=== PATIENT | female | born 1975 | race Caucasian/White ===

== ENCOUNTER 2017-09-14 18:36 | Inpatient (IN) | payer OTHER ==
[~2017-09-14] VITALS: Ht 177.8 cm; Wt 94.3 kg
--- NOTE | 2017-09-14 21:30 | NUR ---
INTAKE ASSESSMENT Pt presented as anxious,restless,emotionally disturbed,c/o "felling unwell"; reported that she has been drinking beer since she was 15 years old.She started drinking occasionally in small quantity and then over the years she began drinking more frequently in greater quantity and now she is drinking 8 bottles of beer,12 ozs each on a daily basis;last drink was at 1900 today.Pt also reports taking Xanax on a daily basis.She initially began taking Xanax 5 years ago when she was 36 years old,starting with smaller doses.She is currently taking Xanax 2.5mg on a daily basis,last taken 1 mg at 1999 today.She came in here today because she wants to stop drinking beer and taking Xanax.Pt is A/O X 4,speech is clear,ambulates with a steady gait and is in a stable condition to proceed to [facility]. B/P=112/66,T=97.6,P-106,R=18,O2 SAT=95% ON RA. Addendum: 09/15/17 at 0953 by VIKAS SANDERSON RN This morning I asked the patient how long she has been drinking/using at the current rate and she stated as follows: 1. ETOH--8 12oz bottles of beer daily for the past six months. As stated above, she began drinking at 15, it increased over the years, she was sober for two years from the ages of [age] (without treatment), and 6 months ago progressed to the current rate. Last drink was 2 bottles of beer on 09/14 at 1900 2. Xanax--2.5 mg daily for the past six months. This medication is not prescribed and she has never had a prescription for Xanax. She states that she first used Xanax approximately 2 years ago, starting at 1 mg/day, and it progressed to 2.5 mg/day six months ago. She has taken at least 1 mg of Xanax everyday for 2 years. As stated above, last use was 1 mg on 09/14 at 1999. She began purchasing Xanax to help with her anxiety and panic attacks.
[2017-09-14] MEDS ORDERED: ACETAMINOPHEN 325 MG TABLET PO PRN (22:15)
[2017-09-14] MEDS ORDERED: LOPERAMIDE HCL 2 MG CAPSULE PO PRN ×2 (22:15)
[2017-09-14] MEDS ORDERED: IBUPROFEN 600 MG TABLET PO PRN (22:15)
[2017-09-14] MEDS ORDERED: MIRALAX 17 GM POWD.PACK PO PRN (22:15)
[2017-09-14] MEDS ORDERED: LORAZEPAM 1 MG TABLET PO PRN ×2 (22:15)
[2017-09-14] MEDS ORDERED: ONDANSETRON ODT 4 MG TAB.RAPDIS SL PRN (22:15)
[2017-09-14] MEDS ORDERED: ONDANSETRON 4 MG/2 ML VIAL IM PRN (22:15)
[2017-09-14] MEDS ORDERED: THIAMINE HCL 200 MG/2 ML VIAL IM ONE (22:15)
[2017-09-14] MEDS ORDERED: LORAZEPAM 2 MG/1 ML VIAL IM PRN (22:15)
[2017-09-14] MEDS ORDERED: MAGNESIUM HYDROXIDE 30 ML LIQUID UDC PO PRN (22:15)
[2017-09-14 22:24] LABS: *URINE HCG, QUAL NEGATIVE (NEGATIVE)
[2017-09-14] MEDS ORDERED: LORAZEPAM 1 MG TABLET PO ONE (22:30)
--- NOTE | 2017-09-14 22:30 | NUR ---
ADMISSION NOTE HT=5 FEET, 10 INCHES. TV=992 POUNDS. B/P=112/66,T=97.8,P-106,R=18,O2 SAT=95% ON ROOM AIR. CIWA=7 NKA Admitting 41 y/o female to [facility] for medically supervised withdrawals from ETOH/BENZO.Pt presented as anxious,restless,emotionally disturbed,c/o "felling unwell"; reported that she has been drinking beer since she was 15 years old.She started drinking occasionally in small quantity and then over the years she began drinking more frequently in greater quantity and now she is drinking 8 bottles of beer,12 ozs each on a daily basis;last drink was at 1900 today.Pt also reports taking Xanax on a daily basis.She initially began taking Xanax 5 years ago when she was 36 years old,starting with smaller doses.She is currently taking Xanax 2.5mg on a daily basis,last taken 1 mg at 1999 today. 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 distress, Endometriosis,insomnia,decreased hearing in both ears and difficulty breathing when she first wakes up.Pt denies any hx of Asthma/SOB.No seizure hx noted.Pt is c/o headache 5/10 due to "HANG OVER" from drinking beer. Skin is intact,warm and dry to touch,breathing is even and non labored,no s/s of respiratory distress noted, abdomen is soft and palpable with bowel sounds present in all four quadrants,no c/o nausea,vomiting of diarrhea noted.Pt had a bowel movement today. Pt denies any SI/HI/AVH.Pt oriented to room and unit,care plan and safety checks initiated,education material provided. notified,orders obtained. Pt is A/O X 4,lives in [place] by herself,stated that her friend helped her with this admission.She has never been in Detox treatment before,this is her first time ever.She does not have PCP. Pt stated she was sober for 2 years between the ages of 25 to 27 from drinking alcohol and detoxed on her own.She stated that she has never stopped taking Xanax,since she started taking it when she was 36 years old;because she cannot survive without taking Xanax due to having high level of anxiety and has panic attacks when she does not take it. PSYCH HX :- Pt has history of suicide attempt x 2 by overdosing on alcohol and medications,in 2009.She was hospitalized in [facility] x 2 in 2009 and placed on 5150 foe danger to self. SUBS.ABUSE HX: 1) BEERS - Pt reports drinking 8 bottles of beer 12 ozs each on a daily basis. Last drink was 2 bottles at 1900 today. 2) XANAX - Pt reports taking 2.5 mg of Xanax daily. Last taken 1 mg at 2000 today. WITHDRAWAL SYMPTOMS:- Anxiety,restlessness,body twitching,tremors,hallucinations,nausea and insomnia. NO PRIOR DETOX HX. HOME MEDICATIONS XANAX-2.5 MG DAILY FOR ANXIETY. MOTRIN-400 MG NEEDED FOR PAIN. IMODIUM- NEEDED FOR DIARRHEA.
[2017-09-14] MEDS ORDERED: ALPR2TAB2 PO (22:32)
[2017-09-14 22:36] LABS: *AMPHETAMINE, URINE NEGATIVE (NEGATIVE); *BARBITURATE, URINE NEGATIVE (NEGATIVE); *CANNABINOID, URINE NEGATIVE (NEGATIVE); *COCCAINE, URINE NEGATIVE (NEGATIVE); *OPIATE, URINE NEGATIVE (NEGATIVE); *PHENCYCLIDINE SCREEN,URINE NEGATIVE (NEGATIVE)
[2017-09-14] MEDS: diphenhydrAMINE 50 MG CAPSULE PO PRN (23:19)
--- NOTE | 2017-09-14 23:20 | NUR ---
PRN MEDICATIONS PRN MOTRIN GIVEN ORDERED FOR C/O HEADACHE 06/26.PRN BENADRYL GIVEN FOR C/O INSOMNIA.WILL MONITOR FOR EFFECTIVENESS.
[2017-09-15] VITALS: BP 109/71
--- NOTE | 2017-09-15 | NUR ---
CIWA deferred due to Pt being asleep;no s/s of distress noted,all safety measures in place,will continue to monitor.
[2017-09-15 00:01] LABS: BASOPHILS % (AUTO) 0.4 % (0.0-2.0); EOSINOPHILS # (AUTO) 0.3 K/uL (0.0-0.7); EOSINOPHILS % (AUTO) 3.7 % (0.0-7.0); HEMATOCRIT 42.9 % (31.2-41.9); LYMPHOCYTES # (AUTO) 2.3 K/uL (20.0-40.0); LYMPHOCYTES % (AUTO) 27.2 % (20.5-51.5); MEAN CORPUSCULAR HEMOGLOBIN 33.2 uug (24.7-32.8); MEAN CORPUSCULAR HGB CONC 35 g/dL (32.3-35.6); MEAN CORPUSCULAR VOLUME 95.3 fL (75.5-95.3); MONOCYTES # (AUTO) 0.5 K/uL (2.0-10.0); MONOCYTES % (AUTO) 6.3 % (0.0-11.0); NEUTROPHILS # (AUTO) 5.3 K/uL (1.8-8.9); NEUTROPHILS % (AUTO) 62.4 % (38.5-71.5); PLATELET COUNT (AUTO) 276 K/uL (179-408); RED BLOOD CELL COUNT(AUTO) 4.51 MIL/uL (3.63-4.92); WHITE BLOOD COUNT (AUTO) 8.5 K/uL (3.8-11.8)
--- NOTE | 2017-09-15 00:20 | NUR ---
PRN REASSESSMENT. Pt is calm and resting in bed with eyes closed;breathing is even and non labored,no s/s of distress noted;all safety measures in place,call light is within reach,will continue to monitor.
[2017-09-15 00:39] LABS: BILIRUBIN,TOTAL 0.2 mg/dL (0.2-1.0); CREATININE 0.8 mg/dL (0.6-1.3); MAGNESIUM 1.7 mg/dL (1.8-2.4); POTASSIUM 3.9 mmol/L (3.5-5.1); TOTAL PROTEIN, SERUM 6.8 g/dL (6.4-8.2)
[2017-09-15] MEDS ORDERED: LOPE2CAP40 GT (00:41)
[2017-09-15] MEDS ORDERED: IBUP-1955 PO (00:41)
[2017-09-15 04:00] VITALS: BP 98/61
--- NOTE | 2017-09-15 04:00 | NUR ---
CIWA deferred due to Pt being asleep;no s/s of distress noted,all safety measures in place,will continue to monitor.
--- NOTE | 2017-09-15 06:37 | NUR ---
END OF SHIFT Pt is a 41 y/o female admitted to [facility] for medically supervised withdrawals from ETOH/BENZO.Pt presented as feeling anxious,restless,emotionally disturbed,c/o "felling unwell",began crying during interview,stated that she is having and anxiety attack; also c/o headache due to hangover and cannot sleep at night.Pt was given Ativan 2 mg PO as ordered,PRN Motrin for headache and Benadryl for insomnia.Medications were effective in controlling symptoms.Pt slept 7 hrs,fluid intake was 1000 mls,voided x 2.Last CIWA was 7. All safety measures in place. Bed is locked in lowest position with side rails x2 up for safety. Call light within reach, will endorse care to on coming shift nurse.
--- NOTE | 2017-09-15 07:30 | NUR ---
START OF SHIFT NOTE Received report from night nurse, 41 year old female admitted for ETOH/Xanax withdrawal. Patient currently not on any taper but PRN'S available for s/s of withdrawal. Per endorsement patient received PRN Motrin, Benadryl, Ativan effective per night nurse, Last CIWA -7, slept for 7 hours. Received patient alert awake poor eye contact, appears flushed and bilateral hand tremors, sweats, anxious, agitated, restless, easily distracted, unkempt room. Educated patient regarding the importance of attending groups activities. Patient verbalized understanding. All safety measures in place, Call light within reach. Will cont to monitor.
[2017-09-15 08:00] VITALS: BP 95/63
--- NOTE | 2017-09-15 08:00 | NUR ---
CIWA ASSESSMENT CIWA score noted-10, Patient presented with anxiety, agitation, restless, bilateral hand tremors,encourage patient to use non pharmacological intervention. Will cont to monitor.
[2017-09-15] MEDS: MULTIVITAMINS,THERAPEUTIC TABLET PO SCH (08:52)
[2017-09-15] MEDS: THIAMINE HCL 100 MG TABLET PO SCH (08:52)
[2017-09-15] MEDS: FOLIC ACID 1 MG TABLET PO SCH (08:52)
[2017-09-15] MEDS ORDERED: MAGNESIUM OXIDE 400 MG TABLET PO ONE (09:00)
[2017-09-15] MEDS ORDERED: TUBERCULIN,PURIF.PROT.DERIV. 5 TU/0.1 ML TEST ID ONE (09:00)
[2017-09-15 12:00] VITALS: BP 132/90
--- NOTE | 2017-09-15 12:00 | NUR ---
CIWA ASSESSMENT CIWA score-13, Patient continues to exhibits s/s of withdrawal anxiety, agitation, restless, bilateral hand tremors, anhedonia, Patient scheduled to start for Valium taper. Will cont to monitor.
[2017-09-15] MEDS ORDERED: 5 DAY TAPER OF LORAZEPAM -SERENITY PROTOCOL PO PRN (13:00)
--- NOTE | 2017-09-15 13:11 | NUR ---
Therapist prompted client to attend group therapy sessions twice daily.
[2017-09-15] MEDS ORDERED: LORAZEPAM 1 MG TABLET PO SCH (13:30)
[2017-09-15] MEDS ORDERED: 5 DAY TAPER VALIUM-SERENITY PROTOCOL PO PRN (14:45)
[2017-09-15] MEDS: DIAZEPAM 10 MG TABLET PO SCH ×3 (15:07→21:12)
[2017-09-15 16:00] VITALS: BP 119/88
--- NOTE | 2017-09-15 16:00 | NUR ---
CIWA ASSESSMENT CIWA score 12, patient resting in her room, reported anxiety, agitation, restless, pines and needles, sweats. Will cont to monitor.
[2017-09-15] MEDS: FLUOXETINE HCL 20 MG CAPSULE PO SCH (16:28)
--- NOTE | 2017-09-15 18:51 | NUR ---
END OF SHIFT NOTE Gave report to night nurse, 41 year old female admitted for ETOH/Xanax withdrawal and continues and started Valium taper this afternoon tolerated well. Patient continues to exhibit anxiety, agitation, restless, anhedonia, sweats, sad facial expression, worried, fine bilateral hand tremors noted, depressed. Patient received scheduled medications and patient was seen by psychiatrist with new order to give Prozac 20mg PO medication administered as ordered patient tolerated well. During shift patient received scheduled medications and PPD was given on LFA no s/s of bleeding no swelling noted. Encourage patient to attend groups activities to learn new coping skills. Most recent CIWA score-12. All safety measures in place, call light within reach. Patient endorse to night nurse in stable condition.
--- NOTE | 2017-09-15 19:30 | NUR ---
START OF SHIFT Pt is a 41 y/o female admitted to [facility] for medically supervised withdrawals from ETOH/BENZO.Pt received in room,c/o feeling anxious,restless and not feeling well. Pt also c/o intermittent nausea and constipation but does not want to take any medications at this time,stated I will go to smoke and will be okay.Pt has been started on a Valium taper and has been tolerating well.Wants to wait for scheduled medications.No A/R noted. No PRN meds given during the day. Last CIWA 12. All safety measures in place. Bed is locked in lowest position with side rails x2 up for safety. Call light is within reach, will continue to monitor for safety.
[2017-09-15 20:00] VITALS: BP 132/91
--- NOTE | 2017-09-15 20:00 | NUR ---
COWS=9. Pt is c/o feeling tremulous,anxious,restless,c/o having mild nausea but no vomiting reported;refused to take zofran when offered.Pt feels like she does not belong in here.Emotional support and positive coping skills encouraged.Pt stated that her job is very stressful and gives her a lot of anxiety.Pt plans to join a gym and go to an out patient clinic after discharge;will continue to monitor.
[2017-09-15] MEDS: TRAZODONE 50 MG TABLET PO SCH (21:12)
[2017-09-16] VITALS: BP 108/66
--- NOTE | 2017-09-16 | NUR ---
CIWA DEFERRED CIWA deferred due to Pt being asleep;no s/s of distress noted,all safety measures in place,V/S are stable;will continue to monitor.
[2017-09-16 04:00] VITALS: BP 99/68
--- NOTE | 2017-09-16 04:00 | NUR ---
CIWA DEFERRED CIWA deferred due to Pt being asleep;no s/s of distress noted,all safety measures in place,V/S are stable;will continue to monitor.
[2017-09-16 04:05] LABS: HEPATITIS B SURFACE AG Negative (Negative)
--- NOTE | 2017-09-16 07:30 | NUR ---
START OF SHIFT NOTE Received report from night nurse, 41 year old female admitted for ETOH/Xanax withdrawal. Patient continues on Valium taper tolerating well. Per endorsement patient did not receive any PRN , Last CIWA -9, slept for 7 hours. Received patient alert awake poor eye contact, appears flushed and bilateral hand tremors, sweats, anxious, agitated, restless. Educated patient regarding the importance of attending groups activities. Patient verbalized understanding. All safety measures in place, Call light within reach. Will cont to monitor.
[2017-09-16 08:00] VITALS: BP 107/71
--- NOTE | 2017-09-16 08:00 | NUR ---
CIWA ASSESSMENT CIWA score noted 12, Patient presented with anxiety, agitation, restless, anhedonia, sweats, light headed. patient due for schedule medications. Will cont to monitor.
[2017-09-16] MEDS: FOLIC ACID 1 MG TABLET PO SCH (08:12)
[2017-09-16] MEDS: THIAMINE HCL 100 MG TABLET PO SCH (08:12)
[2017-09-16] MEDS: FLUOXETINE HCL 20 MG CAPSULE PO SCH (08:12)
[2017-09-16] MEDS: MULTIVITAMINS,THERAPEUTIC TABLET PO SCH (08:12)
[2017-09-16] MEDS: DIAZEPAM 10 MG TABLET PO SCH ×3 (08:12→20:38)
[2017-09-16] MEDS ORDERED: LORAZEPAM 1 MG TABLET PO SCH (09:00)
[2017-09-16 12:00] VITALS: BP 130/94
--- NOTE | 2017-09-16 12:00 | NUR ---
CIWA ASSESSMENT CIWA score noted 14, Patient continues to exhibit s/s of with anxiety, agitation, restless, sweats, light headed stomach cramps. Will cont to monitor.
--- NOTE | 2017-09-16 13:40 | NUR ---
Therapist prompted client to attend group therapy sessions.
[2017-09-16] MEDS: DICYCLOMINE HCL 20 MG TABLET PO PRN (13:47)
--- NOTE | 2017-09-16 13:47 | NUR ---
PRN BENTYL Patient reported stomach cramps 5/10. PRN Bentyl 20mg PO administered as ordered. Will cont to monitor and reassess.
--- NOTE | 2017-09-16 14:47 | NUR ---
BENTYL REASSESSMENT Per patient Bentyl was effective in lowering her stomach cramps 2/10.
[2017-09-16 16:00] VITALS: BP 126/88
--- NOTE | 2017-09-16 16:00 | NUR ---
CIWA ASSESSMENT CIWA score noted 13, Patient continues to exhibit s/s of with anxiety, agitation, restless, sweats, light headed. Will cont to monitor.
--- NOTE | 2017-09-16 19:21 | NUR ---
END OF SHIFT NOTE Gave report to night nurse, patient continues with Valium taper tolerating well. Patient presented with anxiety, agitation, restless, anhedonia, stomach cramps, bilateral hand tremors. Patient noted with flat affect. Patient was given schedule medications along with PRN Bentyl for stomach cramps noted to be effective. Encourage pt to attend group activities to learn new coping skills. Encourage PO fluids as tolerated. All safety measures in place, Call light within reach. Patient endorsed to night nurse in stable condition.
--- NOTE | 2017-09-16 19:30 | NUR ---
START OF SHIFT Pt is a 41 y/o female admitted on 09/14/17 for ETOH and benzo withdrawal. Pt is on a 5 day Valium taper that started on 09/15/17, tolerating well. Last CIWA 13 and PRN Bentyl administered during day shift. Upon assessment pt presents with anxiety, restlessness, racing thoughts, elevated BP, elevated HR, tremors, sweats, flushed skin, agitation, difficulty concentrating, disheveled appearance, difficulty falling and staying asleep, and is fidgety. Medications due. Safety measures in place. Call light within reach. Will continue to monitor.
[2017-09-16 20:00] VITALS: BP_SYST 122; BP_SYST 150; BP_DIAS 86; BP_DIAS 88
--- NOTE | 2017-09-16 20:00 | NUR ---
CIWA 14 Pt presents with anxiety, restlessness, racing thoughts, elevated BP, elevated HR, tremors, sweats, flushed skin, agitation, difficulty concentrating, disheveled appearance, difficulty falling and staying asleep, and is fidgety. Pt states, "My anxiety is so high right now, I need to go smoke right now."
[2017-09-16] MEDS: TRAZODONE 50 MG TABLET PO SCH (20:38)
[2017-09-16] MEDS: CLONIDINE HCL 0.1 MG TABLET PO PRN (20:38)
--- NOTE | 2017-09-16 20:38 | NUR ---
PRN CLONIDINE ADMINISTRATION Pt presents with anxiety, agitation, sweats and BP 150/88 and HR 92. Safety measures in place. Call light within reach. Will continue to monitor.
--- NOTE | 2017-09-16 21:38 | NUR ---
PRN CLONIDINE REASSESSMENT Pt has improvement in anxiety, sweats and agitation. Pt still has anxiety and restlessness, but has overall improvement in symptoms. Safety measures in place. Call light within reach. Will continue to monitor.
[2017-09-16] MEDS: diphenhydrAMINE 50 MG CAPSULE PO PRN (23:48)
--- NOTE | 2017-09-16 23:48 | NUR ---
PRN BENADRYL ADMINISTRATION Pt requests sleep aid. Safety measures in place. Call light within reach. Will continue to monitor.
[2017-09-17] VITALS: BP 110/74
--- NOTE | 2017-09-17 | NUR ---
CIWA 12 Pt presents with anxiety, restlessness, intermittent tremors, sweats, flushed skin, agitation, disheveled appearance, difficulty falling and staying asleep. Pt states, "I feel wide awake."
--- NOTE | 2017-09-17 00:48 | NUR ---
PRN BENADRYL REASSESSMENT Pt laying in bed with eyes closed, medication noted effective. Respirations even and unlabored. Safety measures in place. Call light within reach. Will continue to monitor.
--- NOTE | 2017-09-17 04:00 | NUR ---
CIWA DEFERRED AND VITALS REFUSED Pt laying in bed with eyes closed, CIWA deferred, to be assessed when pt is awake per orders. Vitals refused. Respirations even and unlabored. Safety measures in place. Call light within reach. Will continue to monitor.
--- NOTE | 2017-09-17 07:14 | NUR ---
END OF SHIFT Pt is a 41 y/o female admitted on 09/14/17 for ETOH and benzo withdrawal. Pt is on a 5 day Valium taper that started on 09/15/17, tolerating well. Pt presented with anxiety, restlessness, racing thoughts, elevated BP, elevated HR, tremors, sweats, flushed skin, agitation, difficulty concentrating, disheveled appearance, difficulty falling and staying asleep, and was fidgety. Scheduled medications and PRN Clonidine and Benadryl administered, effective in S/S of withdrawal AEB CIWA 14 lowered to CIWA 12 during shift. Pt slept 7 hours. Intake 2000 ml, void x 5, stool x 1. Safety measures in place. Call light within reach. Pts needs have been met. Endorsed to day shift nurse.
--- NOTE | 2017-09-17 07:26 | NUR ---
BEGINNING OF SHIFT Patient endorsement report received from night time nanny nurse, all pertinent information was discussed. Patient is a 41 year old female admitted with admitting Dx: Etoh/BZO withdrawal. patient remains under close observation, will continue to monitor patient closely throughout out shift, will monitor s/sx of withdrawal, currently with ongoing 5 day Valium taper as ordered. patient is scheduled to begin day 3 of taper. Patient received PRN: clonidine, and Benadryl as per night time nanny medications effective. patient slept for 7 hours. Patient with last CIWA score of: 12. Patient received awake, alert and oriented x4, educated regarding plan of care for the day and medication regimen. safety measures are in place. call light with in reach. will continue to monitor closely.
[2017-09-17 08:09] VITALS: BP 92/66
[2017-09-17] MEDS: FLUOXETINE HCL 20 MG CAPSULE PO SCH (08:37)
[2017-09-17] MEDS: THIAMINE HCL 100 MG TABLET PO SCH (08:37)
[2017-09-17] MEDS: FOLIC ACID 1 MG TABLET PO SCH (08:37)
[2017-09-17] MEDS: MULTIVITAMINS,THERAPEUTIC TABLET PO SCH (08:37)
[2017-09-17] MEDS: DIAZEPAM 5 MG TABLET PO SCH ×4 (08:38→21:07)
[2017-09-17] MEDS ORDERED: LORAZEPAM 1 MG TABLET PO SCH (09:00)
[2017-09-17] MEDS ORDERED: NICOTINE 14 MG/24HR PATCH TD PRN (09:00)
--- NOTE | 2017-09-17 09:00 | NUR ---
CIWA ASSESSMENT Patient in room, noted with flat affect, depressed and anxious mood. Patient presenting with: tremors, anxiety, agitation, fidgety, restless, depression, diaphoresis, difficulty concentrating, generalized discomfort, increased emotional amplitude, intermittent perspiration, and sensitivity to sound. Patient with CIWA score of: 17, Dr. Ruth aware, no new others, patient continues on 5 day Valium taper as ordered, encouraged patient to increase PO fluid intake as tolerated. Will continue to monitor.
[2017-09-17 12:23] VITALS: BP 101/74
--- NOTE | 2017-09-17 13:00 | NUR ---
CIWA ASSESSMENT Patient continues exhibiting the following s/sx of withdrawal: tremors, anxiety, agitation, fidgety, restless, depression, difficulty concentrating, generalized discomfort, diaphoresis, increased emotional amplitude, intermittent perspiration, and sensitivity to sound. Patient with CIWA score of: 17, Dr. Ruth aware, no new others, will continue to monitor.
[2017-09-17] MEDS: MAG HYDROX/AL HYDROX/SIMETH 30 ML LIQUID UDC PO PRN (15:18)
--- NOTE | 2017-09-17 15:18 | NUR ---
PRN MYLANTA Patient reported heartburn, administered mylanta as ordered, will monitor effectiveness of medication.
--- NOTE | 2017-09-17 16:18 | NUR ---
MYLANTA REASSESSMENT Medication effective, no longer c/o heartburn.
--- NOTE | 2017-09-17 16:37 | NUR ---
Clinical Therapy Note: Met with pt. briefly after report in IDT that pt. 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 Patient acknowledged that she " really does not want to do it but realizes she has to call her employer." Britney and this remote mortgage underwriter spoke with the client briefly and Britney agreed to facilitate this this evening. Client was agreeable. Ange BROWN was also made aware of the situation.
[2017-09-17 16:45] VITALS: BP 138/97
--- NOTE | 2017-09-17 17:00 | NUR ---
CIWA ASSESSMENT continues to exhibit the following s/sx of withdrawal:dyspepsia, tremors, anxiety, agitation, fidgety, restless, depression, difficulty concentrating, generalized discomfort, diaphoresis, increased emotional amplitude, intermittent perspiration, and sensitivity to sound. Patient with CIWA score of: 17, Dr. Ruth aware, no new others, will continue to monitor.
--- NOTE | 2017-09-17 19:02 | NUR ---
START OF SHIFT NOTE: Endorsed patient is a 41 year old female admitted for Benzodiazepines(Xanax) and Alcohol(Beer) withdrawal. She is on ordered 5 day Valium taper. Patent reports NKA, is on Full Code, Regular Diet, is on Fall and Seizures Precautions. Patient denies History of withdrawal-induced seizures. Patient denies SI/HI. Patient is alert and oriented x4 with stable gait. She is appears sad and worry with poor eye contact, anxious mood and flat affect. Patient 's c/o feelings of easily overwhelmed, increased anxiety, and irritability. She expressed her feelings as," I am easily irritated, and have restlessness and fatigue". Emotional support and reassuring provided. Encouraged expressed her feelings. Last CIWA=17 @1645 per outgoing day shift nurse report: Patient presented with moderate withdrawal symptoms of anxiety, agitation, nervousness, tremors, sweating, generalized body aches, myalgia, heartburn, headache, restlessness, and fatigue. PRN Mylanta administrated for heartburn at 1518, and was effective, per day shift nurse report. Patient remains compliant with treatment, medications and diet regime. Encouraged to fluid intake as tolerated. Encouraged to attended groups activities. All needs met. Safety measures in place: Call light within reach, bed is locked in lowest position, padded bed rails up bilaterally. Patient endorsed by day shift nurse. Report received. Will continue to monitor closely.
--- NOTE | 2017-09-17 19:02 | NUR ---
END OF SHIFT Patient monitored closely during shift, continues with ongoing 5 day Valium taper as ordered, currently on day 3 of taper. During shift patient presented with the following s/sx of withdrawal: dyspepsia, tremors, anxiety, agitation, fidgety, restless, depression, difficulty concentrating, generalized discomfort, diaphoresis, increased emotional amplitude, intermittent perspiration, and sensitivity to sound. Patient with last CIWA score of: 17. MD was made aware of patients elevated CIWA scores. Received PRN: Mylanta during shift, medication was effective one hour post administration. Patient was also noted Disheveled, unkempt, unwashed/uncombed hair. Patient encouraged to maintain personal area and self groom. Patients affect was noted flat and labile. Noted with an anxious/depressed mood. Patient easily overwhelmed. Encouraged to develop coping skills and utilization of non pharmacological interventions. Also encouraged to practice self soothing techniques such as progressive muscle relaxation. Patient encouraged to attend group therapies/sessions to learn new coping skills to prevent relapse, noted attending and participating denies SI/HI. Encouraged increase PO fluid intake as tolerated. Patients safety measures are in place.
[2017-09-17 20:00] VITALS: BP 126/79
--- NOTE | 2017-09-17 20:00 | NUR ---
CIWA ASSESSMENT: CIWA=14 at 2000: Patient presented with moderate withdrawal symptoms of anxiety, agitation, nervousness, irritability, flushed face, sweating, tremors, yawning, piloerection, restlessness, and fatigue. The patient is alert and oriented x4, ambulatory with steady gait, cooperative with soft, clear speech. Affect irritable and anxious. Mood labile.
[2017-09-17] MEDS: diphenhydrAMINE 50 MG CAPSULE PO PRN (21:07)
[2017-09-17] MEDS: TRAZODONE 50 MG TABLET PO SCH (21:07)
--- NOTE | 2017-09-17 21:07 | NUR ---
PRN BENADRYL 50 MG 1 CAP PO ADMINISTRATION Patient c/o insomnia and asked aid. Benadryl 50 mg PO administrated PRN with full glass of water as ordered. Patient tolerated well. All needs met. Safe and calm environment with minimized noises was provided. Safety measures on place. Call light within reach, bed in lowest position locked, padded rails up bilaterally. Will continue to monitor closely.
--- NOTE | 2017-09-17 22:07 | NUR ---
RE-ASSESSMENT Patient is sleeping. RR: 16. Respirations even and unlabored. Benadryl 50 mg PO administrated PRN for insomnia at 2106 was effective. Safe and calm environment with minimized noises was provided. All needs met. Safety measures: Call light within reach, bed in lowest position locked, padded rails up bilaterally. Will continue to monitor closely.
[2017-09-18] VITALS: BP 117/79
--- NOTE | 2017-09-18 | NUR ---
CIWA ASSESSMENT: CIWA=12 at 0000: Patient presented with anxiety, agitation, depression, nervousness, irritability, tremors, sweating, nasal congestion, fatigue, and restlessness. Patient reports, "Already sleeping much better, anxiety still there, but way down". The patient is noted easy overwhelmed, with anxious mood and flat affect. Relaxation Techniques: Deep breathing exercises, guided imagery, and visualization.
[2017-09-18] MEDS: CLONIDINE HCL 0.1 MG TABLET PO PRN (01:20)
--- NOTE | 2017-09-18 01:20 | NUR ---
PRN CLONIDINE 0.1 MG PO ADMINISTRATION. PRN Clonidine 0.1 mg PO administrated for anxiety at 0120 with full glass of water, as ordered. Patient tolerated well. Safe and calm environment with minimized noises was provided. All needs met. Safety measures: Call light within reach, bed locked in the lowest position, and padded rails up x2. Will continue to monitor closely.
--- NOTE | 2017-09-18 02:20 | NUR ---
PRN CLONIDINE PO RE-ASSESSMENT Patient is sleeping. RR 15. Respirations even and unlabored. PRN Clonidine 0.1 mg PO administrated for anxiety at 0120 was effective. Safe and calm environment with minimized noises was provided. All needs met. Safety measures in the place: Call light within reach, bed locked in the lowest position, and padded rails up x2. Will continue to monitor closely.
[2017-09-18 04:00] VITALS: BP 97/67
--- NOTE | 2017-09-18 04:00 | NUR ---
CIWA ASSESSMENT: CIWA=10 at 0400: Patient noted with anxiety, agitation, nervousness, irritability, flushed face, sweating, tremors, yawning, restlessness, and fatigue. The patient said that "medications alleviated my withdrawal symptoms". Safe and calm environment with minimized noises was provided. All needs met. Safety measures in place: Call light within reach, bed is locked in lowest position, and padded bed rails up bilaterally. Will continue to monitor closely.
--- NOTE | 2017-09-18 07:11 | NUR ---
END OF SHIFT NOTE: 41 year old female presented for withdrawal from Benzodiazepines(Xanax) and Alcohol (Beer). Patient continues ordered 5 day Valium taper which tolerated well. Patient remains compliant with treatment, medications, and diet regime. The patient reports Allergy to Barbiturates, cat and dog dander, and diphenhydramine. Patient is alert and oriented x4,cooperative, with steady gait , and with soft, clear speech. The patient appears irritable, worry with poor eye contact. Mood anxious, labile affect. Encouraged expresses her feeling, and reassuring provided. Education provided to use of Relaxation Techniques: Deep breathing exercises, guided imagery, and visualization. She is noted disheveled, unkempt, and with uncombed hair. Education for hygiene and safety provided. Patient verbalized understanding. Initial CIWA = 14 at 2001, CIWA=12 at 0000. Latest CIWA=10 at 0400: Patient presented with anxiety, agitation, depression, irritability, nervousness, nasal congestion, tremors, restlessness, and fatigue. VSWNL. Respirations are even and unlabored. Patient denies SOB, chest pain and cough. Skin is intact, warm, and dry to touch. Benadryl 50 mg PO administrated PRN for insomnia at 2107, PRN Clonidine 0.1 mg PO administrated for anxiety at 0120, and were effective. Patient sleep 4 hours, Intake: 1,401 ml, voided x3. Encouraged to intake fluids as tolerated. Patient attended groups activities. Safety and calm environment provided. All needs met. Safety measures: Call light within reach, bed in the lowest position and locked, padded rails up x2. Patient endorsed to day shift nurse.
--- NOTE | 2017-09-18 07:30 | NUR ---
BEGINNING OF SHIFT Patient continues under close observation. Report received from research attorney nurse, all pertinent information was discussed. Patient continues on 5 day Valium taper as ordered, patient is scheduled to begin day 4 of taper. Patient received PRN: clonidine, and Benadryl as per research attorney medications effective. patient slept for 4 hours, per research attorney nurse, patient went to sleep late due to was watching a movie. Patient with last CIWA score of: 10. Patient received awake, alert and oriented x4, educated regarding plan of care for the day and medication regimen. safety measures are in place. call light with in reach. will continue to monitor closely.
[2017-09-18 08:15] VITALS: BP 110/59
[2017-09-18] MEDS: FLUOXETINE HCL 20 MG CAPSULE PO SCH (08:39)
[2017-09-18] MEDS: THIAMINE HCL 100 MG TABLET PO SCH (08:39)
[2017-09-18] MEDS: DIAZEPAM 5 MG TABLET PO SCH ×3 (08:40→21:04)
[2017-09-18] MEDS: FOLIC ACID 1 MG TABLET PO SCH (08:40)
[2017-09-18] MEDS: MULTIVITAMINS,THERAPEUTIC TABLET PO SCH (08:40)
[2017-09-18] MEDS ORDERED: LORAZEPAM 1 MG TABLET PO SCH (09:00)
--- NOTE | 2017-09-18 09:00 | NUR ---
CIWA ASSESSMENT Monitoring patient closely, noted presenting the following s/sx of withdrawal: tremors, diaphoretic, anxious, agitated, restless, fidgety, clammy skin, difficulty concentrating, generalized discomfort, increased emotional amplitude, intermittent perspiration,with CIWA score of: 11. continues on 5 day Valium taper as ordered, encouraged patient to increase PO fluid intake as tolerated. Will continue to monitor.
--- NOTE | 2017-09-18 13:00 | NUR ---
CIWA ASSESSMENT Patient continues to exhibit the following s/sx of withdrwal: tremors, diaphoretic, anxious, agitated, restless, fidgety, clammy skin, difficulty concentrating, generalized discomfort, increased emotional amplitude, intermittent perspiration,with CIWA score of: 11. Will continue to monitor.
--- NOTE | 2017-09-18 13:44 | NUR ---
MD COMMUNICATION Patient reported to nurse that she has been experiencing an increase in a nausea, patient reports in the past taking many NSAID's for endometriosis pain, and believes that is why her stomach aches and has an increase in heart burn. Notified Dr. Ruth, per MD new orders obtained " Protonix 40mg PO QD in am for acid reflux, first dose now" MD unable to enter order, order was read back and verified, noted and carried out. Patient was offered Mylanta and declined report it does not help her. Will continue to monitor.
[2017-09-18 13:48] VITALS: BP 115/79
[2017-09-18] MEDS: PANTOPRAZOLE SODIUM 40 MG TABLET.DR PO SCH (14:49)
--- NOTE | 2017-09-18 17:23 | NUR ---
CIWA ASSESSMENT Still noted with the following s/sx : tremors, diaphoretic, anxious, agitated, restless, fidgety, clammy skin, difficulty concentrating, generalized discomfort, increased emotional amplitude, intermittent perspiration,with CIWA score of: 11. Will continue to monitor.
[2017-09-18 17:39] VITALS: BP 97/60
--- NOTE | 2017-09-18 18:55 | NUR ---
START OF SHIFT NOTE: 41 year old patient is alert and oriented x4, ambulatory with steady gait, soft and clear speech. The patient appears with anxious mood and labile affect. Reassuring provided. Encouraged to express her feelings. The most recent CIWA=11 at 1600, per outgoing day shift nurse report: The patient presented with moderate withdrawal symptoms of anxiety, agitation, nervousness, irritability, sweating, abdominal cramps, nausea, restlessness, tremors, and fatigue. Respirations are even and unlabored. Patient denies SOB, chest pain, and cough. Skin is intact, warm, and dry to touch. The patient tolerated well. The patient remains compliant with treatment, medications, and diet regime. Encouraged to fluids intake as tolerated. Safe and calm environment with minimized noises was provided. All needs met. Safety measures in place: Call light within reach, bed is locked in lowest position, and padded bed rails up bilaterally. Patient endorsed by outgoing day shift nurse. Will continue to monitor closely.
--- NOTE | 2017-09-18 18:55 | NUR ---
END OF SHIFT Noted Disheveled, unkempt, unwashed/uncombed hair. Patient encouraged to maintain personal area and self groom. Patients affect was noted flat and labile. Noted with an anxious/depressed mood. Patient easily overwhelmed. Patient continues on Valium taper as ordered, today was day 4 of taper. Continues under close observation. Patient compliant with therapeutic plan of care. Patient presented with: the following s/sx of withdrawal: tremors, diaphoretic, anxious, agitated, restless, fidgety, clammy skin, difficulty concentrating, generalized discomfort, increased emotional amplitude, intermittent perspiration,with last, CIWA score of: 11.Encouraged to develop coping skills and utilization of non pharmacological interventions. Patient encouraged to attend group therapies/sessions to learn new coping skills to prevent relapse, noted attending and participating denies SI/HI. Encouraged increase PO fluid intake as tolerated. Patients safety measures are in place. Patient endorsed to crisis clinician nurse, all pertinent information discussed.
[2017-09-18 20:00] VITALS: BP 136/85
--- NOTE | 2017-09-18 20:00 | NUR ---
[facility] ASSESSMENT: CIWA=11 at 2000: The patient presented with anxiety, agitation, obv. irritability, nasal congestion, stomach cramps, very mild pins and needles sensations, dilated pupils, nervousness, tremors, sweating, yawning, restlessness, and fatigue. Patient appears with anxious mood and flat affect. Emotional support and reassuring provided. Encouraged to expresses his feelings. Relaxation Techniques: deep breathing exercises, guided imagery, and visualization. Safe and calm environment with minimized noises was provided. All needs met. Safety measures: Call light within reach, bed is locked in lowest position, and padded bed rails up x2.
[2017-09-18] MEDS: TRAZODONE 50 MG TABLET PO SCH (21:04)
[2017-09-18] MEDS: diphenhydrAMINE 50 MG CAPSULE PO PRN (23:14)
--- NOTE | 2017-09-18 23:14 | NUR ---
PRN BENADRYL 50 MG 1 CAPSULE PO ADMINISTRATION PRN Benadryl 50 mg PO administrated for insomnia as ordered. Patient tolerated well. Safe and calm environment with minimized noises was provided. All needs met. Safety measures in the place: Call light within reach, bed locked in the lowest position, padded rails up x2. Will continue to monitor closely.
[2017-09-19] VITALS: BP 115/79
--- NOTE | 2017-09-19 | NUR ---
CIWA ASSESSMENT CIWA=10 at 0000. Patient presented with anxiety, agitation, depression, irritability, fatigue, nervousness, very mild pins and needles sensations, and sweating. The patient is anxious, irritated, easy overwhelmed, with poor eye contact. Safe and calm environment with minimized noises was provided. All needs met. Safety measures on place. Call light within reach, bed locked in lowest position, padded rails up bilaterally. Will continue to monitor closely. Addendum: 09/19/17 at 0144 by ADONAY ANNE RN wrong note
--- NOTE | 2017-09-19 | NUR ---
CIWA ASSESSMENT. CIWA=11 at 0000: Patient noted with anxiety, agitation, nervousness, irritability, flushed face, sweating, tremors, yawning, restlessness, and fatigue. The patient is noted easy overwhelmed, with anxious mood and flat affect. Relaxation Techniques: Deep breathing exercises, guided imagery, and visualization. Emotional support and reassuring provided. The patient encouraged to express his feelings. Safe and calm environment with minimized noises was provided. All needs met. Safety measures: Call light within reach, bed is locked in lowest position, and padded bed rails up bilaterally. Will continue to monitor closely.
--- NOTE | 2017-09-19 00:14 | NUR ---
BENADRYL RE-ASSESSMENT The patient is sleeping. RR: 16. Respirations are even and unlabored. PRN Benadryl 50 mg PO administrated at 2314 was effective. Safe and calm environment with minimized noises was provided. All needs met. Safety measures in the place: Call light within reach, bed locked in the lowest position, and padded rails up x2. Will continue to monitor closely.
[2017-09-19 04:00] VITALS: BP 94/57
--- NOTE | 2017-09-19 04:00 | NUR ---
CIWA ASSESSMENT CIWA=12 at 0400. The patient c/o anxiety, agitation, irritability, clammy skin, stomach cramps, pins and needles sensations, myalgia, tremors, restlessness, fatigue, nervousness, sweating, nasal congestion, and yawning. Safe and calm environment provided. All needs met. Safety measures in place: Call light within reach, bed locked in lowest position, and padded bed rails up bilaterally. Will continue to monitor closely.
[2017-09-19] MEDS: PANTOPRAZOLE SODIUM 40 MG TABLET.DR PO SCH (06:56)
--- NOTE | 2017-09-19 07:02 | NUR ---
END OF SHIFT NOTE Presented patient is a 40 old female continues 5 day Valium taper ordered for Benzodiazepines (Xanax) and Alcohol (Vodka) withdrawal. Withdrawal symptoms were closely monitored. Patient remains compliant with medications, treatment, and diet regimen. The patient said that "medications alleviated my withdrawal symptoms". Patient is alert and oriented x4, ambulatory with gait. Her speech is soft and clear. The patient is noted with anxious mood and labile affect. Patient reports, "I am feeling irritability, easily excited, and rapid emotional changes". Encouraged used Relaxation Techniques: Deep breathing exercises, guided imagery, and visualization. CIWA=13 at 2000, CIWA=11 at 0000. Last CIWA=12 at 0400: Patient presented with anxiety, agitation, depression, nervousness, emotional volatility, irritability, tremors, sweating, nasal congestion, fatigue, and restlessness. Patient reports, "Already sleeping much better, anxiety still there, but way down". PRN Benadryl 50 mg PO administrated for insomnia at 2324, and was effective. Patient slept for 4 hours, intake 1,500 ml, voided x3. All needs met. Safety measures in the place by hospital policy: Call light within reach, bed in the lowest position and locked, padded rails up x2. Patient endorsed to day shift nurse in stable condition, report given.
--- NOTE | 2017-09-19 07:29 | NUR ---
BEGINNING OF SHIFT Received patient in room with eyes closed, respirations are even and unlabored. Patient continues under close observation. Patient with admitting dx: etoh withdrawal, with ongoing 5 day valium taper, patient is scheduled to begin day 5 of taper, will monitor closely. Patient endorsement report received from bowl turner nurse, all pertinent information was discussed. Patient received PRN: Trazodone, and Benadryl as per bowl turner medications effective. patient slept for 4 hours, per bowl turner nurse. Patient with last CIWA score of: 12. Patient received awake, alert and oriented x4, educated regarding plan of care for the day and medication regimen. safety measures are in place. call light with in reach. will continue to monitor closely.
[2017-09-19 08:35] VITALS: BP 118/74
[2017-09-19] MEDS: FLUOXETINE HCL 20 MG CAPSULE PO SCH (08:36)
[2017-09-19] MEDS: THIAMINE HCL 100 MG TABLET PO SCH (08:36)
[2017-09-19] MEDS: MULTIVITAMINS,THERAPEUTIC TABLET PO SCH (08:36)
[2017-09-19] MEDS: FOLIC ACID 1 MG TABLET PO SCH (08:36)
[2017-09-19] MEDS ORDERED: LORAZEPAM 1 MG TABLET PO SCH (09:00)
[2017-09-19] MEDS ORDERED: DIAZEPAM 5 MG TABLET PO SCH (09:00)
--- NOTE | 2017-09-19 09:00 | NUR ---
CIWA ASSESSMENT Continues under close observation, presenting with the following s/sx of withdrawal: tremors, diaphoretic, anxious, agitated, restless, fidgety, clammy skin, difficulty concentrating, generalized discomfort, increased emotional amplitude, intermittent perspiration,with CIWA score of: 12. continues on 5 day Valium taper as ordered, encouraged patient to increase PO fluid intake as tolerated. Will continue to monitor.
--- NOTE | 2017-09-19 11:07 | NUR ---
MD COMMUNICATION/STAT EKG Patient reported to Dr. Bernard that she has been experiencing chest pain for the past 6 months, the pain comes and goes. Patient currently complaining of left upper chest pain, denies any radiating pain, no dizziness noted. Patients BP: 136/85 HR: 77 O2 SAT: 100% RA R: 17. Patient did verbalize feeling an increase in anxiety, and c/o heart burn. Per Dr. Damon stat orders for EKG were input into [facility]. Offered patient Mylanta and Vistaril. Will continue to monitor.
[2017-09-19] MEDS: MAG HYDROX/AL HYDROX/SIMETH 30 ML LIQUID UDC PO PRN (11:14)
[2017-09-19] MEDS: HYDROXYZINE PAMOATE 25 MG CAPSULE PO PRN ×2 (11:14→21:46)
--- NOTE | 2017-09-19 11:14 | NUR ---
PRN TYLENOL/VISTARIL/MYLANTA Patient administered Vistaril for increase anxiety, Mylanta for heart burn, and Tylenol for c/o pain 05/27. will monitor effectiveness of medication.
--- NOTE | 2017-09-19 12:14 | NUR ---
TYLENOL/VISTARIL/MYLANTA REASSESSMENT Patient reports decrease in pain, current pain level 0/10. No further episode of heart burn, and feels less anxious, patient verbalized looking forward to attend and participating in yoga. No C/O chest pain at this time. Will continue to monitor.
--- NOTE | 2017-09-19 13:00 | NUR ---
CIWA ASSESSMENT Continues presenting the following s/sx of withdrawal: tremors, diaphoretic, anxious, agitated, restless, fidgety, clammy skin, difficulty concentrating, generalized discomfort, increased emotional amplitude, intermittent perspiration,with CIWA score of: 12. denies any chest pain at this time, pending EKG, will continue to monitor.
[2017-09-19 13:24] VITALS: BP 131/88
[2017-09-19 16:46] VITALS: BP 130/79
--- NOTE | 2017-09-19 16:48 | NUR ---
CIWA ASSESSMENT Patient noted exhibiting the s/sx of withdrawal: tremors that can be felt but not seen, barely sweating, anxious, agitated, restless, fidgety, clammy skin, difficulty concentrating, generalized discomfort, increased emotional amplitude, intermittent perspiration,with CIWA score of: 9. Will continue to monitor.
--- NOTE | 2017-09-19 19:00 | NUR ---
START OF SHIFT NOTE: Presented patient, 41 year old female, is on last day of 5 day Valium taper for Benzodiazepines(Xanax) and Alcohol(Beer) withdrawal. Upon endorsement, patient is alert and oriented x4 with stable gait. She is appears worried, with anxious mood and labile affect. The most recent CIWA=9 at 1600: During the day shift patient presented with withdrawal symptoms such as anxiety, agitation, nervousness, tremors, sweating, clammy skin, generalized body aches , heartburn, restlessness, and fatigue. PRN Vistaril 25 mg PO administrated for anxiety, PRN Tylenol 650 mg PO administrated for pain at 1114, PRN Maalox Suspension 30 ml/1 unit dose cup PO administrated for heartburn at 1114, and were effective, per day shift nurse report. Patient remains compliant with treatment, medications and diet regime. Patient reports, "I am enjoying to attending groups activities, and spending time in Recreation Room. Today, the panel talked about their experiences of being drunk ". Encouraged to fluid intake as tolerated. All needs met. Safety measures in place: Call light within reach, bed is locked in lowest position, padded bed rails up bilaterally. Patient endorsed by day shift nurse. Will continue to monitor closely.
--- NOTE | 2017-09-19 19:00 | NUR ---
END OF SHIFT Patient alert and oriented x4, compliant with therapeutic plan of care. during shift was noted to present the following s/sx of withdrawal: tremors, diaphoretic, anxious, agitated, restless, fidgety, clammy skin, difficulty concentrating, generalized discomfort, increased emotional amplitude, intermittent perspiration,with last, CIWA score of: 9. Noted with an anxious/depressed mood. Patient easily overwhelmed. Patient continues on Valium taper as ordered, today is day 5 of taper. Continues under close observation, patient received PRN: Tylenol, Vistaril and Mylanta at 1114, medications were effective. Patient with episode of reporting on/off chest pain for the past 6 months, EKG done during shift, Dr. Myles notified of the results, NNO. currently patient denies any chest pain, monitored closely during shift. Encouraged to develop coping skills and utilization of non pharmacological interventions. Patient encouraged to attend group therapies/sessions to learn new coping skills to prevent relapse, noted attending and participating denies SI/HI. Participated in Yoga during shift. Encouraged increase PO fluid intake as tolerated. Patients safety measures are in place. Patient endorsed to night supervisor nurse, all pertinent information discussed.
[2017-09-19 20:00] VITALS: BP 139/93
--- NOTE | 2017-09-19 20:00 | NUR ---
CIWA ASSESSMENT CIWA=9 at 2000: The patient experienced withdrawal symptoms such as moderate anxiety, agitation, nervousness, tremors, that can be felt, not observe, barely sweating, clammy skin, and restlessness. The patient expressed her feelings such as," I am easily irritated, and have restlessness". Encouraged to express his feelings. Reassuring provided. Educated in Relaxation Techniques and Coping Skills. Patient returning her knowledge back by verbalized understanding. All needs met. Safety measures in place: Call light within reach, bed is locked in lowest position, padded bed rails up x2. Will continue to monitor closely.
[2017-09-19] MEDS ORDERED: FLUO-120 PO (20:41)
[2017-09-19] MEDS ORDERED: HYDR-3895 PO (20:41)
[2017-09-19] MEDS ORDERED: NICO-671 TD (20:41)
[2017-09-19] MEDS ORDERED: TRAZ-213 PO (20:41)
[2017-09-19] MEDS: diphenhydrAMINE 50 MG CAPSULE PO PRN (21:46)
[2017-09-19] MEDS: DICYCLOMINE HCL 20 MG TABLET PO PRN (21:46)
[2017-09-19] MEDS: TRAZODONE 50 MG TABLET PO SCH (21:46)
--- NOTE | 2017-09-19 21:46 | NUR ---
PRN VISTARIL 25 MG 1 CAPSULE PO ADMINISTRATION. PRN Vistarill 25 mg PO administrated for anxiety at 0009 as ordered. Patient tolerated well. Safe and calm environment with minimized noises was provided. All needs met. Safety measures: Call light within reach, bed locked in the lowest position, padded rails up x2. Will continue to monitor closely.
--- NOTE | 2017-09-19 21:46 | NUR ---
PRN BENADRYL 50 MG 1 CAPSULE PO AND PRN BENTYL 20 MG 1 TABLET PO ADMINISTRATION. PRN Benadryl 50 mg PO administrated for insomnia at 2145, PRN Bentyl 20 mg PO administrated for abdominal spasm at 2145, as ordered. Patient tolerated well. Safe and calm environment with minimized noises was provided. All needs met. Safety measures: Call light within reach, bed locked in the lowest position, and padded rails up x2. Will continue to monitor closely.
--- NOTE | 2017-09-19 22:46 | NUR ---
PRN BENADRYL PO, PRN VISTARIL PO, AND PRN BENTYL RE-ASSESSMENT Patient is sleeping. RR:15. Respirations even and unlabored. PRN Benadryl 50 mg PO administrated for insomnia at 2145, PRN Bentyl 20 mg PO administrated for abdominal spasm at 2145, PRN Vistaril 25 mg PO administrated for anxiety at 2145, were effective. Safe and calm environment with minimized noises was provided. All needs met. Safety measures: Call light within reach, bed locked in the lowest position, and padded rails up x2. Will continue to monitor closely.
[2017-09-20] VITALS: BP 127/86
--- NOTE | 2017-09-20 | NUR ---
CIWA ASSESSMENT CIWA=10 at 0000: The patient c/o anxiety, agitation, nervousness, tremors, that can be felt, not observe, barely sweating, and restlessness. Safe and calm environment with minimized noises was provided. All needs met. Safety measures in place: Call light within reach, bed is locked in lowest position, and padded bed rails up X2. Will continue to monitor closely.
[2017-09-20 04:00] VITALS: BP 93/60
--- NOTE | 2017-09-20 04:00 | NUR ---
CIWA ASSESSMENT CIWA=9 at 0400: The patient noted with anxiety, agitation, irritability, nervousness, tremors, that can be felt, not observe, sweating, and restlessness. All needs met. Safety measures in place: Call light within reach, bed is locked in lowest position, padded bed rails up x2. Will continue to monitor closely.
[2017-09-20] MEDS: PANTOPRAZOLE SODIUM 40 MG TABLET.DR PO SCH (06:47)
--- NOTE | 2017-09-20 07:07 | NUR ---
END OF SHIFT NOTE Endorsed patient is completed 4 days from ordered 5 day Valium taper for Benzodiazepines (Xanax) and Alcohol (Vodka) withdrawal. Withdrawal symptoms were closely monitored. The patient scheduled for discharging today. Patient is alert and oriented x4, ambulatory with steady gait, and soft and clear speech. Irritated mood and anxious affect noted. Patient reports, "I am feeling irritability, easily excited, and rapid emotional changes". Encouraged used Relaxation Techniques: Deep breathing exercises, guided imagery, and visualization CIWA=9 at 2000, CIWA=10 at 0000. Last CIWA=9 at 0400: The patient noted with anxiety, agitation, irritability, nervousness, tremors, that can be felt, not observe, sweating, and restlessness PRN Benadryl 50 mg PO administrated for insomnia at 2146, PRN Bentyl 20 mg PO administrated for abdominal spasm at 2146, PRN Vistaril 25 mg PO administrated for anxiety at 2146, and were effective. Patient remains compliant with treatment, medications and diet regime. Patient attended group activities. Patient reports, "I am enjoying to attending groups activities, and spending time in Recreation Room. Patient slept for 6 hours, intake 1,500 ml, voided x6. All needs met. Safety measures: Call light within reach, bed in the lowest position and locked, padded rails up x2. Patient endorsed to day shift nurse.
--- NOTE | 2017-09-20 07:30 | NUR ---
START OF SHIFT Pt 41 y/o female admitted for etoh / benzo withdrawal. Received in room on bed with eyes closed resting, but easily arousable to name. Alert and oriented to name, place, and time. P[place]. Skin warm and moist to touch. Respirations even and unlabored Bilateral hand tremors noted. Appears disheveled with hair uncombed. Empty drink bottles scattered throughout the room. Anxious and restless this morning. Irritable with pressured speech noted. Encouraged to maintain hygiene. It was reported that pt slept for 6 hours last night. Last ciwa=9 @ 1999. Pt completed a 5 day valium taper. Bed on lowest position with side rails x2 up for safety. Call light within reach.
[2017-09-20 08:00] VITALS: BP 111/71
--- NOTE | 2017-09-20 08:00 | NUR ---
CIWA ASSESSMENT ciwa=8. Anxious and restless. Irritable with pressured speech noted. Not able to sit/lay still on bed.
[2017-09-20] MEDS: FLUOXETINE HCL 20 MG CAPSULE PO SCH (08:48)
[2017-09-20] MEDS: FOLIC ACID 1 MG TABLET PO SCH (08:48)
[2017-09-20] MEDS: THIAMINE HCL 100 MG TABLET PO SCH (08:48)
[2017-09-20] MEDS: MULTIVITAMINS,THERAPEUTIC TABLET PO SCH (08:48)
[2017-09-20 12:00] VITALS: BP 123/67
--- NOTE | 2017-09-20 12:00 | NUR ---
CIWA ASSESSMENT ciwa=8. Anxious and restless. Irritable. Not able to sit or lay still in bed. Pressured speech noted.
--- NOTE | 2017-09-20 15:30 | NUR ---
AMA Pt 41 y/o female left AMA. Even after speaking with multiple staff and MD. Pt states she needs to go home to get ready for work and has to leave immediately. VS wnl. Denies any SI/ HI. All belongings packed in pt bag. Resource paper explained and given to pt.
== END 2017-09-20 15:30 | disposition home or self-care (01) | DRG 895 ==
LOC: SRC 20:52
PROVIDERS: ADMIT Family Medicine Addiction Medicine; ATTEND Family Medicine Addiction Medicine
PROC: HZ2ZZZZ Detoxification Services for Substance Abuse Treatment (ICD-10-PCS; principal; 2017-09-14)
PROC: HZ41ZZZ Group Counseling for Substance Abuse Treatment, Behavioral (ICD-10-PCS; 2017-09-15)
PROC: HZ31ZZZ Individual Counseling for Substance Abuse Treatment, Behavioral (ICD-10-PCS; 2017-09-16)
DX: F13.230 Sedative, hypnotic or anxiolytic dependence with withdrawal, uncomplicated (principal); F33.1 Major depressive disorder, recurrent, moderate; F10.230 Alcohol dependence with withdrawal, uncomplicated; Y90.9 Presence of alcohol in blood, level not specified; Z91.19 Patient's noncompliance with other medical treatment and regimen; Z91.5 Personal history of self-harm; Z82.49 Family history of ischemic heart disease and other diseases of the circulatory system; F17.210 Nicotine dependence, cigarettes, uncomplicated
CPT/HCPCS: 36415; 70030-TC; 80307; 83690; 83735; 84703; 85025; 86580; 86592; 86705; 86803; 87340; 87806; 93005; A4663; G0480; J3411; Q0163